=== PATIENT | male | born 1990 | race Caucasian/White ===

== ENCOUNTER 2016-12-31 08:13 | Outpatient (RCR) | payer OTHER ==
[~2016-12-31 08:13] MED LIST: CEPHALEXIN500 M1 PO; NORCO 325 MG-51 TAB PO
== END 2017-03-28 ==
LOC: WSOH
DX: S51.831A Puncture wound without foreign body of right forearm, initial encounter (principal); W26.8XXA Contact with other sharp object(s), not elsewhere classified, initial encounter; Y99.0 Civilian activity done for income or pay

== ENCOUNTER 2018-06-04 16:03 | Emergency (ER) | payer OTHER | END 2018-06-04 16:26 | disposition left against medical advice (07) | LOC: COL.ER 16:03 | DX: Z72.9 Problem related to lifestyle, unspecified (principal) ==

== ENCOUNTER 2019-06-17 14:02 | Outpatient (RCR) | payer OTHER | END 2019-06-30 | disposition home or self-care (01) | LOC: WSOH | DX: M77.12 Lateral epicondylitis, left elbow (principal) ==

== ENCOUNTER → 2019-06-23 | Outpatient (CLI) | payer OTHER | LOC: COL.RAD 06:51 | DX: M77.12 Lateral epicondylitis, left elbow (principal) ==